=== PATIENT | male | born 1965 | race Two or more races ===

== ENCOUNTER 2018-10-04 21:09 | Emergency (ER) | payer MEDICAID ==
[~2018-10-04] VITALS: Ht 167.6 cm; Wt 86.4 kg
[2018-10-04] MEDS ORDERED: HYDR10TA31 PO (21:45)
[2018-10-04] MEDS ORDERED: AMLO2.5T4 PO (21:45)
[2018-10-04 22:22] VITALS: BP 134/88
[2018-10-04] MEDS ORDERED: IBUPROFEN 600 MG TABLET PO ONE (22:45)
== END 2018-10-05 00:39 | disposition home or self-care (01) ==
LOC: EMS 21:09
DX: S46.211A Strain of muscle, fascia and tendon of other parts of biceps, right arm, initial encounter (principal); I10 Essential (primary) hypertension; F17.210 Nicotine dependence, cigarettes, uncomplicated; Z79.899 Other long term (current) drug therapy; W23.0XXA Caught, crushed, jammed, or pinched between moving objects, initial encounter; Y93.89 Activity, other specified; Y92.810 Car as the place of occurrence of the external cause; Y99.8 Other external cause status